=== PATIENT | female | born 1965 | race Hispanic/Latino ===

== ENCOUNTER 2017-11-11 11:57 | Outpatient (CLI) | payer OTHER ==
--- NOTE | 2017-11-12 14:07 | Mammography Report ---
BILATERAL DIGITAL SCREENING MAMMOGRAM with CAD : 11/11/17 11:57:00 CLINICAL: Routine screening.Previous right benign stereotactic biopsy for calcifications. COMPARISON:10/30/10 FINDINGS: The breasts are heterogeneously dense, which may obscure small masses.The right breast is negative with an outer biopsy clip. A left retroareolar asymmetry on the CC view requires additional imaging. No architectural distortion or suspicious calcifications. IMPRESSION: Left asymmetry requiring additional imaging. BI-RADS CATEGORY: 0--Needs Additional Imaging RECOMMENDATION: Recall for a left CC spot magnification view and left breast ultrasound needed. COMMENT: Patient follow-up letters are generated by our [employer] application.
== END 2017-11-11 11:58 | disposition home or self-care (01) ==
LOC: SPVWC 11:57
PROVIDERS: ATTEND Obstetrics & Gynecology
DX: Z12.31 Encounter for screening mammogram for malignant neoplasm of breast (principal)
CPT/HCPCS: 77067

== ENCOUNTER 2017-11-22 08:47 | Outpatient (CLI) | payer OTHER ==
--- NOTE | 2017-11-22 09:19 | Mammography Report ---
LEFT DIGITAL DIAGNOSTIC MAMMOGRAM : 11/22/17 08:47:00 CLINICAL: Recalled for asymmetry. COMPARISON:11/11/17 screening FINDINGS: A spot magnification CC view demonstrates satisfactory effacement of asymmetry. IMPRESSION: Negative Mammogram. BI-RADS CATEGORY: 1 -- Negative RECOMMENDATION: Routine mammographic screening in one year. ACR BI-RADS MAMMOGRAPHIC CODES: 0 = Needs additional imaging evaluation; 1 = Negative; 2 = Benign; 3 = Probably benign; 4 = Suspicious; 5 = Malignant; 6 = Known biopsy-proven malignancy COMMENT: 1. Dense breast tissue, i.e., adenosis, fibrocystic changes, etc., may obscure an underlying neoplasm. 2. Approximately 10% of cancers are not detected with mammography. 3. A negative mammography report should not delay biopsy if a clinically suspicious mass is present. COMMENT: Patient follow-up letters are generated via our [employer] application.
== END 2017-11-22 08:48 | disposition home or self-care (01) ==
LOC: SPVWC 08:47
PROVIDERS: ATTEND Obstetrics & Gynecology
DX: N64.89 Other specified disorders of breast (principal)